=== PATIENT | male | born 1965 | race Hispanic/Latino ===

== ENCOUNTER 2019-07-02 13:28 | Emergency (ER) | payer SELFPAY ==
[2019-07-02] MEDS ORDERED: ONDANSETRON 4 MG/2 ML VIAL ONE (13:32)
[2019-07-02] MEDS ORDERED: NA CHLORIDE 0.9% 1,000 ML ONE (13:32)
[2019-07-02 13:47] LABS: Basophils % 1.2 % (0-1.3); Hematocrit 41.3 % (39.6-49.0); Lymphocytes % 33.8 % (15.3-44.8); MPV 10.5 fL (7.6-11.3); RBC Red Blood Cell Count 4.76 M/uL (4.33-5.43)
[2019-07-02 13:53] LABS: Arterial Blood Carboxyhemoglob 1.1 % (0-1.5); Blood Gas Oxyhemoglobin 98.4 % (94-97)
[2019-07-02 13:56] LABS: Protime INR 1.04
[2019-07-02] MEDS ORDERED: PROMETHAZINE 25 MG/ML VIAL ONE (13:58)
[2019-07-02 14:10] LABS: ALT/SGPT 25 U/L (12-78); AST/SGOT 20 U/L (15-37); Albumin 4.1 g/dL (3.4-5.0); Alkaline Phosphatase 79 U/L (45-117); BUN Blood Urea Nitrogen 17 mg/dL (7-18); Bicarbonate 19 mmol/L (21-32); Bilirubin Direct 0.1 mg/dL (0-0.2); Bilirubin Total 0.5 mg/dL (0.2-1.0); Glucose Level 169 mg/dL (74-106); Magnesium 2.1 mg/dL (1.8-2.4); NT PRO-BNP 56 pg/mL (<125); Potassium 3.1 mmol/L (3.5-5.1); Protein, Total 8.1 g/dL (6.4-8.2); Sodium Level 141 mmol/L (136-145); Troponin (Emerg Dept Use Only) < 0.02 ng/mL (0.0-0.045)
--- NOTE | 2019-07-02 14:41 | RAD REPORT ---
EXAM DESCRIPTION: Nicole Single View07/02/2019 2:28 pm CLINICAL HISTORY: Chest pain COMPARISON: none FINDINGS: The lungs appear clear of acute infiltrate. The heart is normal size IMPRESSION: No acute abnormalities displayed
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
[2019-07-02 19:00] VITALS: TEMP 98.1; O2SAT 100
[2019-07-02 19:01] VITALS: BP 153/95
--- NOTE | 2019-07-03 07:46 | EKG ---
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
== END 2019-07-02 17:57 | disposition home or self-care (01) ==
LOC: ER 13:28
DX: R06.00 Dyspnea, unspecified (principal); Y99.0 Civilian activity done for income or pay; Z77.29 Contact with and (suspected) exposure to other hazardous substances
CPT/HCPCS: 36415; 71045; 80048; 80076; 82805; 83735; 83880; 84484; 85025; 85610; 93005; 96361; 96374; 96375; 99284; J2405; J2550; J7030